=== PATIENT | female | born 1960 | race Caucasian/White ===

== ENCOUNTER → 2021-11-06 | Outpatient (CLI) | payer OTHER ==
[2021-11-06 16:42] LABS: HEMOGLOBIN 13.3 gm/dl (12.3-15.3); RED BLOOD COUNT 4.46 M/UL (4.00-5.10); WHITE BLOOD COUNT 9.9 K/UL (4.5-11.0)
[2021-11-06 17:11] LABS: BUN/CREATININE RATIO 19 (0-10)
== END ==
LOC: CT 14:49
PROVIDERS: Internal Medicine Hematology & Oncology
DX: C50.212 Malignant neoplasm of upper-inner quadrant of left female breast (principal); C79.89 Secondary malignant neoplasm of other specified sites
CPT/HCPCS: 36415; 71260; 80053; 85027; Q9967